=== PATIENT | female | born 1965 | race Caucasian/White ===

== ENCOUNTER 2020-05-27 10:15 | Outpatient (REF) | payer OTHER, SELFPAY ==
--- NOTE | 2020-05-27 10:20 | MM_ITS ---
EXAMINATION: MM SCREENING DIGITAL BREAST TOMOSYNTHESIS, BILATERAL CLINICAL INFORMATION: Screening. Asymptomatic. The lifetime risk of breast cancer based on the Tyrer-Cuzick Model is 16%. COMPARISON: Mammography: 05/22/2019, 04/21/2018, 04/19/2017; targeted right breast ultrasound 07/09/2019 TECHNIQUE: Digital breast tomosynthesis is performed in both the craniocaudal and mediolateral oblique views along with computer-aided detection (CAD). Synthesized 2D images are generated from the tomosynthesis. FINDINGS: There are scattered areas of fibroglandular density (ACR BI-RADS breast composition Category b). There are no significant masses, abnormal calcifications, or other abnormalities. There is small cyst again noted anterior medial right breast. No significant changes. MM/MM tomosynthesis screening BI IMPRESSION: No mammographic evidence of malignancy. ASSESSMENT: BI-RADS 2: Benign RECOMMENDATION: Routine annual mammography screening. This patient's information was entered into a reminder system with a target due date for their next mammogram.
== END 2020-05-27 10:16 | disposition home or self-care (01) ==
LOC: HO.MAMMO 10:15
PROVIDERS: PCP Pediatrics; Visit Provider Pediatrics
DX: Z12.31 Encounter for screening mammogram for malignant neoplasm of breast (principal)
CPT/HCPCS: 77063; 77067

== ENCOUNTER → 2020-09-05 13:00 | Outpatient (BNVA) | payer OTHER, SELFPAY | PROVIDERS: PCP Pediatrics; Visit Provider Surgery | DX: E66.01 Morbid (severe) obesity due to excess calories (principal); Z87.19 Personal history of other diseases of the digestive system | CPT/HCPCS: 99212 ==

== ENCOUNTER 2020-09-27 06:03 | Day surgery (SDC) | payer OTHER, SELFPAY ==
[2020-09-20 18:38] VITALS: BMI 40.2
--- NOTE | 2020-09-23 14:18 | P.CONAN_ITS ---
Documented by User: Reta Ware 09/23/20 14:18 HPI - Anesthesia Eval Consult details Narrative: 55yo F for Colonoscopy PMFSH Active Problems Active Problems: All Active Problems (Updated 09/21/20 @ 09:56 by Cristina Roy) Morbid obesity (Acute) History of rectal polyps (Acute) Back pain (Acute) Anxiety (Acute) Depression (Acute) Obesity (Acute) Past Medical History Medical History Anxiety Back pain COVID-19 vaccine series completed Depression GERD (gastroesophageal reflux disease) History of rectal polyps Hx of flexible sigmoidoscopy Morbid obesity Obesity Surgical History Surgical History H/O colonoscopy Hx of rectal sphincterotomy Social History Social History Smoking Status: Never smoker Use of substances other than those prescribed or required for medical reasons: No Advance Directives: No Advance Directives Information Provided: No Advance Directives on File: No Meds Allergies Allergy/AdvReac Type Severity Reaction Status Date / Time No Known Allergies Allergy Verified 09/27/20 06:24 [No Known Allergies*] Home Medications Medication Instructions Recorded Confirmed Last Taken Type albuterol sulfate 2.5 mg INHALATION Q4H PRN 09/05/20 09/20/20 Unknown History albuterol sulfate 90 mcg/actuation 2 puff PO Q6H 09/05/20 09/20/20 Unknown History aerosol inhaler cholecalciferol (vitamin D3) 50 50 mcg PO DAILY 09/05/20 09/20/20 Unknown History mcg (2,000 unit) capsule ibuprofen 800 mg tablet 800 mg PO TID PRN 09/05/20 09/20/20 09/20/20 09:00 History loratadine 10 mg tablet 10 mg PO DAILY 09/05/20 09/20/20 Unknown History omeprazole 20 mg capsule,delayed 20 mg PO DAILY 09/05/20 09/20/20 Unknown History release Exam Exam Date and Time: September 23, 2020 1418 Height,Weight and Vital Signs: Height 5 ft 2 in Weight 99.79 kg Assessment and Plan Assessment Anesthesia Assessment: Chart Reviewed Documented by User: Gabriela Jon 09/27/20 07:08 [facility] Past Medical History Medical History Anxiety Back pain COVID-19 vaccine series completed Depression GERD (gastroesophageal reflux disease) History of rectal polyps Hx of flexible sigmoidoscopy Morbid obesity Obesity Surgical History Surgical History H/O colonoscopy Hx of rectal sphincterotomy Social History Social History Smoking Status: Never smoker Use of substances other than those prescribed or required for medical reasons: No Advance Directives: No Advance Directives Information Provided: No Advance Directives on File: No Meds Allergies Allergy/AdvReac Type Severity Reaction Status Date / Time No Known Allergies Allergy Verified 09/27/20 06:24 [No Known Allergies*] Home Medications Medication Instructions Recorded Confirmed Last Taken Type albuterol sulfate 2.5 mg INHALATION Q4H PRN 09/05/20 09/20/20 Unknown History albuterol sulfate 90 mcg/actuation 2 puff PO Q6H 09/05/20 09/20/20 Unknown History aerosol inhaler cholecalciferol (vitamin D3) 50 50 mcg PO DAILY 09/05/20 09/20/20 Unknown History mcg (2,000 unit) capsule ibuprofen 800 mg tablet 800 mg PO TID PRN 09/05/20 09/20/20 09/20/20 09:00 History loratadine 10 mg tablet 10 mg PO DAILY 09/05/20 09/20/20 Unknown History omeprazole 20 mg capsule,delayed 20 mg PO DAILY 09/05/20 09/20/20 Unknown History release Exam Airway Mallampati Class: II TM Dist: >3cm Neck ROM: Full Assessment and Plan Assessment Anesthesia Assessment: Anesthesia Plan Discussed and Chart Reviewed Final Anesthetic Review NPO: Yes ASA Class: III Final Preanesthetic Review: No Changes in Pt Med Stat, Meds/Allgs Chart Reviewed, Consent Obtained/Reviewed and Anes Risks/Benef Reviewed Patient Risk: Intermediate Procedure Risk: Low Assessment/Block/Sedation in SS: Assess/Block/Sedation-SS Anesthetic Plan Anesthetic Plan: MAC: Disposition: Standard PACU
[2020-09-27 06:39] VITALS: BP 145/85; PULSE 85; RESP 18; TEMP 36.6; O2SAT 95
[2020-09-27] MEDS: Lactated Ringers 1,000 ML 100 ML IVCONT (07:01)
--- NOTE | 2020-09-27 07:15 | MHC.SHP ---
Pre-Procedural Eval Section B Chief Complaint: Hx of Rectal Polyps Allergies: Allergies Allergy/AdvReac Type Severity Reaction Status Date / Time No Known Allergies Allergy Verified 09/27/20 06:24 [No Known Allergies*] Plan I have reviewed the history and physical and performed a pertinent physical examination on my patient. No changes have occurred unless specified.
--- NOTE | 2020-09-27 08:16 | P.OP_ITS ---
Operative Note Operative Note Date of Service: 09/27/20 Narrative: Preop diagnosis: History of malignant rectal polyp Postop diagnosis: 1. Polyp on a long stalk, about 8 mm, at level 30 cm 2. Polyp about 8 mm relatively flat at level 6-7 cm Procedure: Colonoscopy, with polypectomy using hot snare x2, with tattoo marking of the rectal polyp Surgeon: Ashutosh Brasher MD Patient is a 55-year-old female who had a polyp removed from the rectum in 2019. This turned out to be a malignant rectal polyp. Since this appeared to have been removed completely, after discussions with the patient, it was decided to follow this with close surveillance. A repeat sigmoidoscopy thereafter did not reveal any residual lesion nor any recurrence. She was noted to have a follow- up colonoscopy last year but in view of the pandemic, she was unable to do so she says. She understood the technique of colonoscopy. However the risks, benefits, and alternatives She was brought to the operative placed in left lateral decubitus position under more than and is a care. A full digital rectal was done there were no palpable anal lesions except for bulky internal and external hemorrhoids but the tip of the best colonoscopy gently introduced to the anal orifice advanced with insufflation all the cecum the cecum was debated to the cecum the divide via visualization of the ileocecal valve as well as the appendiceal orifice. The cecal mucosa was unremarkable. The scope was gradually withdrawn with careful examination of the entire colonic mucosa being done with scope withdrawal. The patient had good bowel prep to was unlikely that any lesion may have been missed. There was note of a polyp on a stalk, about 8 mm at about 30 cm. This was removed using hot snare applied on the stalk. Another polyp relatively flat about 8mm was seen at the level 6-7. This appeared to be the same level of the previous polyp that was removed. The location up was on the left lateral area. This was removed using hot snare. I marked the area on each side using tattoo markings with Endo ink. I examined both polypectomy sites prior to complete removal of the scope with both of these appeared hemostatic The rest of the anal shelf and the anal canal was unremarkable except for bulky hemorrhoids and the scope was then withdrawn completely with desufflation The patient tolerated the procedure well. There were no complications noted I will await for the path report and decide on the next of care depending on her pathology as she may require surgical resection. Otherwise, I will repeat her flexible sigmoidoscopy in 6 months if the path report does not show malignancy.
[2020-09-27 08:19] VITALS: BP 114/69; PULSE 79; RESP 20; TEMP 36.8; O2SAT 98
--- NOTE | 2020-09-27 08:22 | PM.OP ---
Brief Operative Note Date of Service: 09/27/20 Pre-op diagnosis: History of malignant rectal polyp Post-op diagnosis: other (1.Polyp at level 30 2. polyp at level 6-7 both removed with polypectomy snare 3. Bulky hemorrhoids) Procedure: Colonoscopy with polypectomy using hot snare x2 Surgeon: Ashutosh Brasher MD Anesthesia: MAC Estimated blood loss (mL): 1 Pathology: other (Polyps x2) Condition: stable Disposition: PACU
[2020-09-27 08:35] VITALS: BP 125/63; PULSE 84; RESP 17; TEMP 36.8; O2SAT 95
== END 2020-09-27 09:31 | disposition home or self-care (01) ==
PROVIDERS: PCP Pediatrics; Visit Provider Surgery
PROC: 0DJD8ZZ Inspection of Lower Intestinal Tract, Via Natural or Artificial Opening Endoscopic (ICD-10-PCS; CPT 45378; principal; 2020-09-27 07:30)
DX: Z12.11 Encounter for screening for malignant neoplasm of colon (principal); Z85.048 Personal history of other malignant neoplasm of rectum, rectosigmoid junction, and anus; C20 Malignant neoplasm of rectum; D12.5 Benign neoplasm of sigmoid colon; K64.8 Other hemorrhoids; K64.4 Residual hemorrhoidal skin tags; K21.9 Gastro-esophageal reflux disease without esophagitis; Z79.899 Other long term (current) drug therapy
CPT/HCPCS: 45385; 45381; 88305; 88341; 88342

== ENCOUNTER → 2020-10-12 10:00 | Outpatient (BNVA) | payer OTHER, SELFPAY | PROVIDERS: PCP Pediatrics; Visit Provider Surgery | DX: C80.1 Malignant (primary) neoplasm, unspecified (principal) | CPT/HCPCS: 99212 ==

== ENCOUNTER 2021-06-01 14:07 | Outpatient (REF) | payer OTHER, SELFPAY ==
--- NOTE | ~2021-06-01 | MM_ITS ---
EXAMINATION: MM SCREENING DIGITAL BREAST TOMOSYNTHESIS, BILATERAL CLINICAL INFORMATION: Screening. Asymptomatic. The lifetime risk of breast cancer based on the Tyrer-Cuzick Model is 10.3%. COMPARISON: Mammography: May 27, 2020 and studies dating back to August 10, 2011 TECHNIQUE: Digital breast tomosynthesis is performed in both the craniocaudal and mediolateral oblique views along with computer-aided detection (CAD). Synthesized 2D images are generated from the tomosynthesis. FINDINGS: The breasts are heterogeneously dense, which may obscure small masses (ACR BI-RADS breast composition Category c). There are no significant masses, abnormal calcifications, or other abnormalities. MM/MM tomosynthesis screening BI IMPRESSION: There are no significant changes from prior study. ASSESSMENT: BI-RADS 1: Negative RECOMMENDATION: Routine annual mammography screening. This patient's information was entered into a reminder system with a target due date for their next mammogram.
== END 2021-06-01 14:08 | disposition home or self-care (01) ==
LOC: HO.MAMMO 14:07
PROVIDERS: Visit Provider Pediatrics
DX: Z12.31 Encounter for screening mammogram for malignant neoplasm of breast (principal)
CPT/HCPCS: 77063; 77067

== ENCOUNTER 2022-06-04 08:30 | Outpatient (REF) | payer OTHER, SELFPAY ==
--- NOTE | ~2022-06-04 | MM_ITS ---
EXAMINATION: MM SCREENING DIGITAL BREAST TOMOSYNTHESIS, BILATERAL CLINICAL INFORMATION: Screening. Asymptomatic. The lifetime risk of breast cancer based on the Tyrer-Cuzick Model is 10%. COMPARISON: Mammography: 06/01/2021, 05/27/2020, 05/22/2019 TECHNIQUE: Digital breast tomosynthesis is performed in both the craniocaudal and mediolateral oblique views along with computer-aided detection (CAD). Synthesized 2D images are generated from the tomosynthesis. FINDINGS: There are scattered areas of fibroglandular density (ACR BI-RADS breast composition Category b). There are no significant masses, abnormal calcifications, or other abnormalities. Parenchymal pattern is similar to prior studies. There is no developing density or architectural abnormality. The axilla are unremarkable. There is mild bilateral chronic nipple retraction. MM/MM tomosynthesis screening BI IMPRESSION: No significant changes from prior studies. ASSESSMENT: BI-RADS 2: Benign RECOMMENDATION: Routine annual mammography screening. This patient's information was entered into a reminder system with a target due date for their next mammogram.
== END 2022-06-04 08:31 | disposition home or self-care (01) ==
LOC: HO.MAMMO 08:30
PROVIDERS: PCP Pediatrics; Visit Provider Pediatrics
DX: Z12.31 Encounter for screening mammogram for malignant neoplasm of breast (principal)
CPT/HCPCS: 77063; 77067

== ENCOUNTER 2023-06-04 16:00 | Outpatient (REF) | payer OTHER, SELFPAY ==
[2023-06-04 18:17] LABS: Influenza A PCR NEGATIVE (Negative); Influenza B PCR NEGATIVE (Negative); Resp Syncy Virus RNA Qual PCR NEGATIVE (Negative); SARS COV2 PCR INHOUSE NEGATIVE (Negative)
== END 2023-06-04 16:01 | disposition home or self-care (01) ==
LOC: HO.CHCLNP 16:00
PROVIDERS: Visit Provider Family Medicine
DX: J45.41 Moderate persistent asthma with (acute) exacerbation (principal); Z11.52 Encounter for screening for COVID-19
CPT/HCPCS: 0241U

== ENCOUNTER 2023-06-24 09:42 | Outpatient (REF) | payer OTHER, SELFPAY | END 2023-06-24 09:43 | disposition home or self-care (01) | LOC: HO.MAMMO 09:42 | PROVIDERS: PCP Pediatrics; Visit Provider Pediatrics | DX: Z12.31 Encounter for screening mammogram for malignant neoplasm of breast (principal) | CPT/HCPCS: 77063; 77067 ==

== ENCOUNTER → 2023-06-24 09:45 | Outpatient (BNV) | payer OTHER, SELFPAY | PROVIDERS: PCP Pediatrics; Visit Provider Radiology Diagnostic Radiology | DX: Z12.31 Encounter for screening mammogram for malignant neoplasm of breast (principal) | CPT/HCPCS: 77063; 77067 ==

== ENCOUNTER 2023-07-19 12:38 | Outpatient (REF) | payer OTHER, SELFPAY ==
[2023-07-19 14:56] LABS: Alanine Aminotransferase 35 U/L (0-31); Albumin Level 4.4 g/dL (3.5-5.0); Alkaline Phosphatase 141 U/L (39-117); Aspartate Amino Transferase 33 U/L (5-31); Bilirubin Direct 0.1 mg/dL (0.0-0.5); Bilirubin Total 0.5 mg/dL (0.0-1.0); Cholesterol 233 mg/dL (<200); HDL Cholesterol 45 mg/dL (>40); LDL Cholesterol Calculated 140 mg/dL (<100); Total Protein 8.1 g/dL (6.5-8.0); Triglycerides 242 mg/dL (<150)
[2023-07-19 15:12] LABS: TSH reflex Free T4 5.03 uIU/mL (0.32-4.0)
[2023-07-19 15:43] LABS: Free T4 (Free Thyroxine) 0.78 ng/dL (0.71-1.85)
[2023-07-22 11:49] LABS: TS Negative Control Passed; TS Panel A 0; TS Panel B 0; TS Positive Control Passed; TSpotTB Negative (Negative)
== END 2023-07-19 12:39 | disposition home or self-care (01) ==
LOC: HO.HHCL 12:38
PROVIDERS: Visit Provider Pediatrics
DX: R79.89 Other specified abnormal findings of blood chemistry (principal); R52 Pain, unspecified
CPT/HCPCS: 36415; 80061; 80076; 84439; 84443; 86481

== ENCOUNTER 2024-01-28 14:28 | Outpatient (REF) | payer OTHER, SELFPAY ==
[2024-01-31 11:34] LABS: HPV mRNA E6/E7 Not Detected (Not Detected)
== END 2024-01-28 14:29 | disposition home or self-care (01) ==
LOC: HO.CHCLNP 14:28
PROVIDERS: Visit Provider Pediatrics
DX: Z01.419 Encounter for gynecological examination (general) (routine) without abnormal findings (principal)
CPT/HCPCS: 36415; 87624; 88175

== ENCOUNTER 2024-12-21 09:20 | Outpatient (REF) | payer OTHER, SELFPAY ==
--- OUTSIDE RECORDS SUMMARY | 2024-12-21 09:50 | XMS_ITS | Encounter Summary ---
Author Organization [employer] Address [address] [place] [address] Care Team Providers Care [employer] Name Role Phone Agnieszka Armando MD Primary Care Provider [phone] Reason for Visit * Reason Comments Med Refill Encounter Details Date Type Department Care Team ([facility] st Contact Info) Description 09/06/2023 Refill [facility] [address], [place] [id number] Cathy Polo MD [address] [place] [address] Social History Tobacco Use Types Packs/Day Years Used Date Smoking Tobacco: Never Passive Smoke Exposure: Never Smokeless Tobacco: Never Depression Answer Date Recorded Patient Health Questionnaire-9 Score 1 10/25/2022 Housing Stability Answer Date Recorded What is your housing situation today? I have max arce 04/12/[address] you li ve. Do you have problems with any of the following? None of the above 04/12/2023 Food Insecurity Answer Date Recorded Within the past 12 months, y ou worried that your food would run out before you got money to buy more: Never True 04/12/2023 Within the past 12 months,th e food you bought just didn't last and you didn't have enough money to get more: Never True Transportation Answer Date Recorded In the past 12 months, has l ack of transportation kept you from medical appts, meetings, work or from getting things needed for daily living? No 04/12/2023 Utilities Answer Date Recorded In the past 12 months, has t he electric, gas, oil or water company threatened to shut off services in your home? No 04/12/2023 Depression Answer Date Recorded Patient Health Questionnaire-2 Score 1 10/25/2022 Comments Unknown Sex and Gender Information Value Date Recorded Sex Assigned at Female 04/16/2022 10:14 AM EDT Legal Sex Female 10:14 AM EDT Gender Identity Female 04/16/2022 10:14 AM EDT Sexual Orientation Choose not to disclose 2021 10:14 AM EDT documented as of this encounter Plan of Treatment Upcoming Encounters Date Type Department Care Team ([facility] st Contact Info) Description 02/03/2025 9:00 AM EDT Telemedicine [facility] [address] [place] [address] Agnieszka Armando MD [address] [place] [address] documented as of this encounter Visit Diagnoses Not on filedocumented in this encounter Additional Health Concerns Assessment Noted Time PHQ-9 Depression Total Score: 1 10/26/19 23 2:10 PM EDT documented as of this encounter Care Teams [employer] Relationship Specialty Start Date End Date Agnieszka Armando MD [address] [place] [address] PCP - General Family Medicine 06/17/18 documented as of this encounter
[2024-12-21 14:35] LABS: MANUAL DIFF FLAG NO
[2024-12-21 14:46] LABS: Hematocrit 42.0 % (37.0-47.0); Hemoglobin 13.9 g/dl (12.0-16.0); Imm Gran Abs Auto 0.01 X10*3/uL (0.00-0.03); Imm Gran Pct Auto 0.2 % (0.0-0.4); Lymphocytes Absolute Auto 1.1 X10*3/uL (1.2-4.9); Mean Corpuscular HGB Conc 33.1 g/dl (31.0-35.0); Mean Corpuscular Hemoglobin 29.5 pg (27.0-33.0); Mean Corpuscular Volume 89.2 fL (80.0-98.0); NRBC Abs Auto 0.000 X10*3/uL (0.0-0.012); NRBC Pct Auto 0.0 /100WBC (0.0-0.2); Platelet Count 350 X10*3/uL (160-400); Red Blood Count 4.71 X10*6/uL (4.20-5.50); White Blood Count 5.8 X10*3/uL (4.8-10.8)
[2024-12-21 15:17] LABS: Alanine Aminotransferase 39 U/L (0-31); Albumin Level 4.8 g/dL (3.5-5.0); Alkaline Phosphatase 152 U/L (39-117); Anion Gap 12 (12-20); Aspartate Amino Transferase 43 U/L (5-31); Blood Urea Nitrogen 17 mg/dL (9-16); Calcium 10.2 mg/dL (8.4-10.2); Carbon Dioxide 24 mmol/L (22-29); Chloride 107 mmol/L (96-108); Cholesterol 259 mg/dL (<200); Estimated Glomerular Filt Rate > 60; HDL Cholesterol 50 mg/dL (>40); Potassium 4.5 mmol/L (3.3-5.1); Sodium 138 mmol/L (135-145); Total Protein 8.3 g/dL (6.5-8.0); Triglycerides 205 mg/dL (<150)
[2024-12-21 15:38] LABS: Folate 12.0 ng/mL (> or = 4.0); Vitamin B12 479 pg/mL (200-900)
[2024-12-21 15:51] LABS: Microalbum/Creatinine Ratio Ur 24.7 ug/mg cr (<30)
== END 2024-12-21 09:21 | disposition home or self-care (01) ==
LOC: HO.CHCLDS 09:20
PROVIDERS: Visit Provider Pediatrics
DX: C20 Malignant neoplasm of rectum (principal); R79.89 Other specified abnormal findings of blood chemistry
CPT/HCPCS: 36415; 80048; 80061; 80076; 82043; 82306; 82570; 82607; 82746; 85025

== ENCOUNTER 2025-04-19 13:26 | Outpatient (REF) | payer OTHER, SELFPAY ==
--- NOTE | ~2025-04-19 | MM_ITS ---
EXAMINATION: MM SCREENING DIGITAL BREAST TOMOSYNTHESIS, BILATERAL CLINICAL INFORMATION: Screening. Asymptomatic. COMPARISON: Comparison made to multiple prior, most recent June 24, 2023, and most remote April 19, 2017. TECHNIQUE: Digital breast tomosynthesis is performed in mediolateral oblique and craniocaudal views along with computer-aided detection (CAD). Synthesized 2D images are generated from the tomosynthesis. FINDINGS: BREAST COMPOSITION: There are scattered areas of fibroglandular density. BILATERAL BREASTS: No significant masses, suspicious calcifications or other abnormalities are seen in either breast. MM/MM tomosynthesis screening BI IMPRESSION: BILATERAL BREASTS: Negative, no mammographic evidence of malignancy. Normal interval follow-up is recommended in 12 months. ASSESSMENT: BI-RADS: Category 1: Negative RECOMMENDATION: Routine annual mammography screening. FOLLOW-UP: 1 year F/U This examination should not preclude the clinical evaluation of a suspicious palpable abnormality. This patient's information was entered into a reminder system with a target due date for their next mammogram. Electronically signed by: Ramon Gomez MD 04/21/2025 06:11 PM [facility]
== END 2025-04-19 13:27 | disposition home or self-care (01) ==
LOC: HO.MAMMO 13:26
PROVIDERS: PCP Pediatrics; Visit Provider Pediatrics
DX: Z12.31 Encounter for screening mammogram for malignant neoplasm of breast (principal)
CPT/HCPCS: 77063; 77067

== ENCOUNTER → 2025-04-19 13:45 | Outpatient (BNV) | payer OTHER, SELFPAY | PROVIDERS: PCP Pediatrics; Visit Provider Radiology Body Imaging | DX: Z12.31 Encounter for screening mammogram for malignant neoplasm of breast (principal) | CPT/HCPCS: 77063; 77067 ==